=== PATIENT | female | born 2000 | race American Indian/Alaskan Native ===

== ENCOUNTER 2019-02-16 07:35 | Emergency (ER) | payer OTHER ==
[2019-02-16 07:47] VITALS: BP 106/54
--- NOTE | 2019-02-16 09:25 | Emergency Department Report ---
ED Female HPI - General Chief complaint: Urogenital-Female Stated complaint: HEADACHE/STUFFY NOSE Time Seen by Provider: 02/16/19 08:50 Source: patient Mode of arrival: Ambulatory Limitations: No Limitations - History of Present Illness Initial comments: 18-year-old healthy female who presents to ED complaining of the nasal congestion and stuffy nose and cough for the past week. Patient denies any fever, coughing, headache. Patient is also stating that the other day she applied the near hair cream to her vaginal area and accidentally got some inside her vagina. Patient states that she has a little bit of irritation in each evening which is resolved now but she was concerned about that as well. She denies vaginal discharge, dysuria, hematuria or any other problems. Are you Now?: No - Related Data Previous Rx's Medication Instructions Recorded Last Taken Type Fluconazole [Diflucan TAB] 150 mg PO DAILY #2 tablet 02/16/19 Unknown Rx Loratadine [Claritin] 10 mg PO DAILY #24 tablet 02/16/19 Unknown Rx metroNIDAZOLE [Flagyl TAB] 500 mg PO Q12HR #14 tab 02/16/19 Unknown Rx Allergies Allergy/AdvReac Type Severity Reaction Status Date / Time No Known Allergies Allergy Unverified 06/13/18 18:46 ED Review of Systems ROS: Stated complaint: HEADACHE/STUFFY NOSE Other details as noted in HPI Comment: All other systems reviewed and negative ED Past Medical Hx - Past Medical History Previous Medical History?: Yes Hx Asthma: Yes - Surgical History Past Surgical History?: No - Social History Smoking Status: Never Smoker Substance Use Type: None - Medications Home Medications: Home Medications Medication Instructions Recorded Confirmed Last Taken Type Fluconazole [Diflucan TAB] 150 mg PO DAILY #2 tablet 02/16/19 Unknown Rx Loratadine [Claritin] 10 mg PO DAILY #24 tablet 02/16/19 Unknown Rx metroNIDAZOLE [Flagyl TAB] 500 mg PO Q12HR #14 tab 02/16/19 Unknown Rx ED Physical Exam - General Limitations: No Limitations General appearance: alert, in no apparent distress - Head Head exam: Present: atraumatic, normocephalic - Eye Eye exam: Present: normal appearance - ENT ENT exam: Present: mucous membranes moist - Neck Neck exam: Present: normal inspection - Respiratory Respiratory exam: Present: normal lung sounds bilaterally. Absent: respiratory distress - Cardiovascular Cardiovascular Exam: Present: regular rate, normal rhythm. Absent: systolic murmur, diastolic murmur, rubs, gallop - GI/Abdominal GI/Abdominal exam: Present: soft, normal bowel sounds. Absent: distended, tenderness - External exam: Present: normal external exam. Absent: erythema, swelling Speculum exam: Present: vaginal discharge, cervical discharge, other (mal odorus) Bi-manual exam: Present: normal bi-manual exam. Absent: cervical motion tendernes, adnexal tenderness, uterine tenderness - Extremities Exam Extremities exam: Present: normal inspection - Back Exam Back exam: Present: normal inspection - Neurological Exam Neurological exam: Present: alert, oriented X3 - Psychiatric Psychiatric exam: Present: normal affect, normal mood - Skin Skin exam: Present: warm, dry, intact, normal color. Absent: rash ED Course Vital Signs 02/16/19 07:42 Temperature 98.6 F Pulse Rate 79 Respiratory 18 Rate Blood Pressure 106/54 O2 Sat by Pulse 100 Oximetry ED Medical Decision Making - Medical Decision Making 18year-old female presents with full vaginal vaginitis. Urinalysis is negative for UTI urine test negative. Chlamydia and gonorrhea cultures sent Wet prep Shows positive for clue cells and yeast. Discussed findings with the patient. Discussed medication and treatment. Discussed the patient to [facility] as referred patient is in no acute distress vital signs are normal. Critical care attestation.: If time is entered above; I have spent that time in minutes in the direct care of this critically ill patient, excluding procedure time. ED Disposition Clinical Impression: Bacterial vaginitis, Vulvovaginal candidiasis, Nasal congestion Disposition: - TO HOME OR SELFCARE Is pt being admited?: No Does the pt Need Aspirin: No Condition: Stable Instructions: Bacterial Vaginosis (ED), Vulvovaginal Candidiasis (ED) Additional Instructions: Make sure to follow up with the primary care physician as discussed. Take all your medications as you've been prescribed. If you have any worsening symptoms or develop new symptoms please return to ED immediately. Prescriptions: Loratadine [Claritin] 10 mg PO DAILY #24 tablet Fluconazole [Diflucan TAB] 150 mg PO DAILY #2 tablet metroNIDAZOLE [Flagyl TAB] 500 mg PO Q12HR #14 tab Referrals: PRIMARY CARE, [Primary Care Provider] - 3-5 Days [facility] [Outside] - 3-5 Days [facility] [Outside] - 3-5 Days Forms: STI Treatment and Prevention, Work/School Release Form(ED) Time of Disposition: 10:39
[2019-02-16 10:20] LABS: HCG Qualitative,Urine Negative (Negative)
[2019-02-16 10:24] LABS: Bilirubin,Urine NEG (Negative); Blood,Urine NEG (Negative); Color,Urine Yellow (Yellow); Mucus,Urine FEW /HPF; Protein,Urine <15 mg/dL mg/dL (Negative); Urobilinogen,Urine < 2.0 mg/dL (<2.0); WBC,Urine < 1.0 /HPF (0.0-6.0)
== END 2019-02-16 10:50 | disposition home or self-care (01) ==
LOC: ED 07:35
DX: B37.3 Candidiasis of vulva and vagina (principal); R09.81 Nasal congestion; J45.909 Unspecified asthma, uncomplicated; Z79.899 Other long term (current) drug therapy
CPT/HCPCS: 81001; 81025; 87210; 87591

== ENCOUNTER 2019-10-29 11:35 | Emergency (ER) | payer SELFPAY ==
[2019-10-29 11:47] VITALS: BP 111/71
--- NOTE | 2019-10-29 12:15 | Emergency Department Report ---
ED Abdominal Pain HPI - General Chief Complaint: Abdominal Pain Stated Complaint: STOMACH PAIN/SIDE PRESSURE Time Seen by Provider: 10/29/19 12:10 Source: patient Mode of arrival: Ambulatory Limitations: No Limitations - History of Present Illness Initial Comments: 19 yo AA female comes to er co suprapubic pain. No vag dc or bleeding. Has recently been diagnosed with uti but can not take the bactrum because it makes her nauseated no fever or chills. no back pain. no n/v/d. ambulatory and non toxic on arrival to [facility] MD Complaint: abdominal pain -: Gradual, days(s) Location: suprapubic Migration to: no migration Severity: mild Consistency: intermittent Improves With: nothing Worsens With: nothing Associated Symptoms: denies other symptoms - Related Data Previous Rx's Medication Instructions Recorded Last Taken Type Ciprofloxacin HCl [Ciprofloxacin 500 mg PO Q12HR #14 tab 10/29/19 Unknown Rx TAB] Allergies Allergy/AdvReac Type Severity Reaction Status Date / Time No Known Allergies Allergy Unverified 06/13/18 18:46 ED Review of Systems ROS: Stated complaint: STOMACH PAIN/SIDE PRESSURE Other details as noted in HPI Comment: All other systems reviewed and negative ED Past Medical Hx - Past Medical History Previous Medical History?: Yes Hx Asthma: Yes - Surgical History Past Surgical History?: No - Family History Family history: no significant - Social History Smoking Status: Never Smoker Substance Use Type: None - Medications Home Medications: Home Medications Medication Instructions Recorded Confirmed Last Taken Type Ciprofloxacin HCl [Ciprofloxacin 500 mg PO Q12HR #14 tab 10/29/19 Unknown Rx TAB] ED Physical Exam - General Limitations: No Limitations General appearance: alert, in no apparent distress - Head Head exam: Present: atraumatic, normocephalic - Eye Eye exam: Present: normal appearance - ENT ENT exam: Present: mucous membranes moist - Neck Neck exam: Present: normal inspection - Respiratory Respiratory exam: Present: normal lung sounds bilaterally. Absent: respiratory distress - Cardiovascular Cardiovascular Exam: Present: regular rate, normal rhythm, other (90 bpm). Absent: systolic murmur, diastolic murmur, rubs, gallop - GI/Abdominal GI/Abdominal exam: Present: soft, normal bowel sounds - Extremities Exam Extremities exam: Present: normal inspection - Back Exam Back exam: Present: normal inspection - Neurological Exam Neurological exam: Present: alert, oriented X3 - Psychiatric Psychiatric exam: Present: normal affect, normal mood - Skin Skin exam: Present: warm, dry, intact, normal color. Absent: rash ED Course Vital Signs 10/29/19 11:46 Temperature 98.5 F Pulse Rate 109 H Respiratory 16 Rate Blood Pressure 111/71 [Right] O2 Sat by Pulse 99 Oximetry ED Medical Decision Making - Medical Decision Making Vital Signs 10/29/19 11:46 Temperature 98.5 F Pulse Rate 109 H Respiratory 16 Rate Blood Pressure 111/71 [Right] O2 Sat by Pulse 99 Oximetry Vital Signs 10/29/19 11:46 Temperature 98.5 F Pulse Rate 109 H Respiratory 16 Rate Blood Pressure 111/71 [Right] O2 Sat by Pulse 99 Oximetry Labs 10/29/19 12:08 Urine Color Yellow Urine Turbidity Slightly-cloudy Urine pH 6.0 Ur Specific [place] 1.018 Urine Protein <15 mg/dl Urine Glucose (UA) Neg Urine Ketones 80 Urine Blood Sm Urine Nitrite Neg Urine Bilirubin Neg Urine Urobilinogen 2.0 Ur Leukocyte Esterase Lg Urine WBC (Auto) 11.0 H Urine RBC (Auto) 58.0 U Epithel Cells (Auto) 16.0 H Urine Mucus 3+ Urine HCG, Qual Negative ua noted preg neg pt not able to take bactrum will change to cipro pt dc home with obgyn and pcp follow up. - Differential Diagnosis ro preg/uti Critical care attestation.: If time is entered above; I have spent that time in minutes in the direct care of this critically ill patient, excluding procedure time. ED Disposition Clinical Impression: UTI (urinary tract infection) Disposition: DC-01 TO HOME OR SELFCARE Is pt being admited?: No Does the pt Need Aspirin: No Condition: Stable Instructions: Urinary Tract Infection in Women (ED) Prescriptions: Ciprofloxacin HCl [Ciprofloxacin TAB] 500 mg PO Q12HR #14 tab Referrals: PRIMARY CARE, [Primary Care Provider] - 3-5 Days JOSE FLORES MD [Staff Physician] - 3-5 Days ALLAN GRIER MD [Staff Physician] - 3-5 Days Time of Disposition: 12:58
[2019-10-29 12:47] LABS: Bilirubin,Urine NEG (Negative); Blood,Urine SM (Negative); Color,Urine Yellow (Yellow); Mucus,Urine 3+ /HPF; Protein,Urine <15 mg/dL mg/dL (Negative)
[2019-10-29 12:50] LABS: HCG Qualitative,Urine Negative (Negative)
== END 2019-10-29 13:15 | disposition home or self-care (01) ==
LOC: ED 11:35
DX: N39.0 Urinary tract infection, site not specified (principal); J45.909 Unspecified asthma, uncomplicated; Z79.2 Long term (current) use of antibiotics
CPT/HCPCS: 81001; 81025; 87086; 99283